=== PATIENT | male | born 1945 | race Caucasian/White ===

== ENCOUNTER 2024-01-10 04:39 | Day surgery (SDC) | payer BC ==
[2024-01-03 12:20] VITALS: BMI 28.0
[2024-01-10 10:24] VITALS: TEMP 97.6
[2024-01-10 10:46] VITALS: BP 113/62; PULSE 49; RESP 14
== END 2024-01-10 10:52 | disposition home or self-care (01) ==
LOC: JASU-ENDO 04:39
PROVIDERS: ATTEND Internal Medicine Gastroenterology
PROC: 0DBC8ZX Excision of Ileocecal Valve, Via Natural or Artificial Opening Endoscopic, Diagnostic (ICD-10-PCS; principal; 2024-01-10 10:00)
DX: Z12.11 Encounter for screening for malignant neoplasm of colon (principal); D12.0 Benign neoplasm of cecum; K57.30 Diverticulosis of large intestine without perforation or abscess without bleeding; K64.8 Other hemorrhoids
CPT/HCPCS: 88305-TC